=== PATIENT | female | born 1940 | race Caucasian/White ===

== ENCOUNTER 2017-02-06 22:56 | Outpatient (CLI) | payer MEDICARE, BC ==
--- NOTE | ~2017-02-06 | HEMODYNAMI ---
PATIENT:ULISES HAMLIN MEDICAL RECORD: [id number] : 38 [facility] ADMISSION DATE: 02/07/17 Generatedon:02/07/201710:20 Patient name: ULISES HAMLIN Patient #: [id number] SSN: D OB: 1940 Date of study: 02/07/2017 Page: Of Hemodynamic Procedure Report Patient Data Patient Demographics Procedure consent was obtained First Name: ULISES Gender: Female Last Name: YAKELIN : 1940 [facility] Initial: L Age: 76 year(s) Patient #: [id number] Race: Unknown Additional ID: [id number] Contact details [address]: [address] [place] [address] State: [place] City: [place] Zip code: [address] Past Medical History Allergies Allergen Reaction Date Comments Reported Other allergy 02/07/2017 Codiene Admission Admission Data Admission Date: 02/07/2017 Admission Time: 1:10 Admit Source: Other Room #: D.2117 Lab Results Lab Result Date: 02/07/2017 Lab Result Time: 5:40 Biochemistry Name Units Result Min Max BUN mg/dl 21 --(----)-* 7 18 Creatinine mg/dl 1.1 --(--*-)-- 0.6 1.3 CBC Name Units Result Min Max Hematocrit % 38.6 *-(----)-- 42 54 Hemoglobin g/dl 12.8 -*(----)-- 13.5 17.5 Procedure Procedure Types Cath Procedure Diagnostic Procedure LHC LHC w/Coronaries PCI Procedure Coronary Stent Initial Miscellaneous Procedures Moderate Sedation up to 30 minutes Procedure Description Procedure Date Procedure Date: 02/07/2017 Procedure Start Time: 9:54 Procedure End Time: 10:18 Procedure Staff Name Function Driss Nogueira MD Performing Physician Bhavani Sweeney RT Scrub Daphne Cornejo RN Nurse Fadi Dailey RT Monitor Christiano Whitman RT Band Singer Procedure Data Cath Procedure Fluoroscopy Diagnostic fluoroscopy Total fluoroscopy Time: 5.8 time: 5.8 min min Diagnostic fluoroscopy Total fluoroscopy dose: dose: 357.02 mGy 357.02 mGy Contrast Material Contrast Material Type Amount (ml) Isovue 300 113 Entry Location Entry Primary Successful Side Size Upsize Upsize Entry Closure Hurley ccessful Closure Location (Fr) 1 (Fr) 2 (Fr) Remarks Device Remarks Radial Right 6 Fr Mechanical artery Short Compression Estimated blood loss: 10 ml Diagnostic catheters Device Type Used For End Catheter Placement Diagnostic Terumo 5Fr Procedure Bruington 110cm catheter Procedure Complications No complications Procedure Medications Medication Administration Route Dosage Oxygen NC 2 l/min Lidocaine 2% added to field 20 Heparin Flush Bag added to field 2 bags (1000units/500ml NS) 0.9% NaCl I.V. 100 ml/hr Versed I.V. 0.5 mg Fentanyl I.V. 25 mcg Versed I.V. 0.5 mg Fentanyl I.V. 25 mcg Heparin Bolus I.V. 7500 units Versed I.V. 1 mg Plavix P.O. 600 mg Radial Cocktail I.A. 1 syringe (Verapomil 2mg/Nitro 400mcg/Heparin 1500units) Hemodynamics Rest HGB: 12.8 (g/dl) Heart Rate: 67 (bpm) Pressure Samples Time Site Value (mmHg) Purpose Heart Use Rate(bpm) 9:56 LV 114/-22,-6 EDP 71 9:57 AO 100/46(73) Pullback 74 9:57 LV 102/-10,0 Pullback 74 Gradients Valve Time Site 1 Site 2 Mean SEP/DFP Peak To Heart Use (mmHg) (sec/min) Peak Rate (mmHg) (bpm) Aortic 9:57 LV AO 7 6 2 74 102/-10,0 100/46(73) Calculations Valve P-P Mean Valve Index Valve Source Name Gradient Area Flow (cm2) Aortic 2 7 2 7 Snapshots Pre Cath Intra NCS Post Cath Vital Signs Time Heart Resp SPO2 etCO2 NIBP (mmHg) Rhythm Pain Sedation Rate (ipm) (%) (mmHg) Status Level (bpm) 9:42:41 66 18 90 0 130/75(91) NSR 0 (11) 10(A) , No pain 9:46:53 65 17 91 34.3 135/85(103) NSR 0 (11) 10(A) , No pain 9:51:07 66 15 95 29.1 133/68(116) NSR 0 (11) 10(A) , No pain 9:55:23 64 17 91 38 132/73(96) NSR 0 (11) 10(A) , No pain 9:59:37 71 27 94 37.3 134/76(113) NSR 0 (11) 10(A) , No pain 10:03:51 67 19 90 0 129/73(99) NSR 0 (11) 10(A) , No pain 10:08:05 68 16 93 35.8 120/71(89) NSR 0 (11) 10(A) , No pain 10:12:17 68 16 92 37.3 122/68(97) NSR 0 (11) 10(A) , No pain 10:17:08 68 16 92 36.5 132/71(92) NSR 0 (11) 10(A) , No pain Medications Time Medication Route Dose Verified Delivered Reason Note s Effectiveness by by 9:48:57 Oxygen NC 2 l/min Driss Buffie used for Dre Cornejo RN procedure 9:49:03 Lidocaine 2% added 20ml Driss Driss for local to vial Dre Nogueira MD anesthetic field 9:49:10 Heparin Flush added 2 bags Driss Driss used for Bag to Dre Nogueira MD procedure (1000units/500ml field NS) 9:49:18 0.9% NaCl I.V. 100 Driss Buffie Per physician ml/hr Dre Cornejo RN 9:49:32 Versed I.V. 0.5 mg Driss Buffie for sedation Dre Cornejo RN 9:49:38 Fentanyl I.V. 25 mcg Driss Buffie for sedation Dre Cornejo RN 9:54:24 Versed I.V. 0.5 mg Driss Buffie for sedation Dre Cornejo RN 9:54:25 Radial Cocktail I.A. 1 Driss Rdiss for (Verapomil syringe Dre Nogueira MD vasodilation 2mg/Nitro 400mcg/Heparin 1500units) 9:54:28 Fentanyl I.V. 25 mcg Driss Buffie for sedation Dre Cornejo RN 9:59:08 Versed I.V. 1 mg Driss Buffie for sedation Dre Cornejo RN 10:05:16 Heparin Bolus I.V. 7500 Driss Serna for veri fied units Dre Cornejo RN anticoagulation with dr nogueira 10:18:12 Plavix P.O. 600 mg Driss Cornejo RN antiplatelet therapy Procedure Log Time Note 8:51:54 Informed consent obtained and on chart 8:57:07 Lab Result : Hemoglobin 12.8 g/dl 8:57:07 Lab Result : Creatinine 1.1 mg/dl 8:57:07 Lab Result : BUN 21 mg/dl 8:57:07 Lab Result : Hematocrit 38.6 % 8:57:10 Admit Source: Other 8:57:24 Diagnostic Cath status Elective 8:57:26 Time tracking: Regular hours 8:57:30 Plan of Care:Hemodynamics will remain stable., Cardiac rhythm will remain stable., Comfort level will be maintained., Respiratory function will remain adequate., Patient/ family verbilizes understanding of procedure., Procedure tolerated without complication., Recovers from procedure without complications.. 9:10:08 Christiano HOOD(R) sent for patient. Start room use. 9:11:15 H&P Date Dictated: 02/07/2017 Within 30 days and on chart.. 9:29:43 Patient received from Med II to CCL 3 Alert and oriented. Tansferred to table in Supine position. 9:29:44 Warm blankets applied, and susan hugger turned on for patient comfort. 9:29:44 Correct patient and procedure confirmed by team. 9:29:45 ECG and BP/O2 sat monitors applied to patient. 9:29:46 Pre-procedure instructions explained to patient. 9:29:46 Pre-op teaching completed and patient verbalized understanding. 9:29:47 Family unavailable. 9:29:49 Patient NPO since Midnight. 9:30:20 Patient allergic to Other allergyCodiene 9:41:33 Vital chart was started 9:41:36 Baseline sample Acquired. 9:41:42 Rhythm: sinus rhythm 9:41:53 Full Disclosure recording started 9:41:57 Is the patient allergic to Iodine/contrast media? No. 9:41:58 Is patient on blood thinner?No 9:42:00 Patient diabetic? No. 9:42:03 Previous problem with sedation/anesthesia? No ? 9:42:03 Snore? Yes 9:42:04 Sleep apnea? Yes 9:42:05 Deviated septum? No 9:42:06 Opens mouth fully? Yes 9:42:06 Sticks out tongue? Yes 9:42:09 Airway obstruction? No ? 9:42:11 Dentures? No ? 9:42:28 Modified Ugo's test Ulnar < 7 seconds 9:42:31 Patient pain scale 0/10 ?. 9:42:39 IV patent on arrival in left forearm with 0.9% NaCl at [facility]. 9:42:42 Lab results completed and on chart. 9:42:49 Right Radial & Right Groin area was prepped with chlora-prep and draped in sterile fashion 9:42:50 Alarms reviewed by R. N. 9:42:50 Sharps counted by scrub and verified by R.N. 9:42:55 Use device set Radial Dx 9:42:57 MBrace Wrist Support opened to sterile field. 9:42:57 Acist Manifold opened to sterile field. 9:42:58 Acist Hand Control opened to sterile field. 9:42:58 Tegaderm 4 x 4 opened to sterile field. 9:42:59 Acist Syringe opened to sterile field. 9:43:00 Cook 21G 4cm Radial Needle opened to sterile field. 9:43:00 Medline Cath Pack opened to sterile field. 9:43:04 Bag Decanter opened to sterile field. 9:43:05 Terumo 6Fr Slender Glidesheath opened to sterile field. 9:43:05 St Vinicio 260cm J .035 wire opened to sterile field. 9:43:16 Physician arrived 9:43:16 --------ALL STOP TIME OUT------ 9:43:17 Final Timeout: patient, procedure, and site verified with staff and physician. All members of the team are in agreement. 9:43:18 Right Radial & Right Groin site verified by team. 9:43:20 Physical assessment completed. ASA score P 2 - A patient with mild systemic disease as per Driss Nogueira MD. 9:43:37 Sedation plan: IV Moderate Sedation Versed, Fentanyl 9:48:57 Oxygen 2 l/min NC was administered by Daphne Cornejo RN; used for procedure; 9:49:03 Lidocaine 2% 20ml vial added to field was administered by Driss Nogueira MD; for local anesthetic; 9:49:10 Heparin Flush Bag (1000units/500ml NS) 2 bags added to field was administered by Driss Nogueira MD; used for procedure; 9:49:18 0.9% NaCl 100 ml/hr I.V. was administered by Daphne Cornejo RN; Per physician; 9:49:32 Versed 0.5 mg I.V. was administered by Daphne Cornejo RN; for sedation; 9:49:38 Fentanyl 25 mcg I.V. was administered by Daphne Cornejo RN; for sedation; 9:54:24 Versed 0.5 mg I.V. was administered by Daphne Cornejo RN; for sedation; 9:54:25 Radial Cocktail (Verapomil 2mg/Nitro 400mcg/Heparin 1500units) 1 syringe I.A. was administered by Driss Nogueira MD; for vasodilation; 9:54:28 Fentanyl 25 mcg I.V. was administered by Daphne Cornejo RN; for sedation; 9:54:42 Procedure started. 9:54:47 Local anesthetic to right radial artery with Lidocaine 2% by Driss Nogueira MD.INITIAL ACCESS ONLY 9:54:55 A 6 Fr Short sheath was inserted into the Right Radial artery 9:55:17 A Diagnostic Networked Organisms 5Fr Bruington 110cm catheter was advanced over the wire and used for Procedure. 9:56:06 Zero performed for pressure channel P1 9:56:36 LV gram done using MCKEON 9:56:37 Injector settings: Ml/sec: 5, Volume: 15, 9:56:39 LV hemodynamics recorded. 9:56:52 EF : 45 % 9:57:34 LCA angiography performed. 9:58:45 RCA angiography performed. 9:59:08 Versed 1 mg I.V. was administered by Daphne Cornejo RN; for sedation; 10:01:02 Wave Broadband BasixCompak Inflation Kit opened to sterile field. 10:01:03 Farris BMW Colton 2 J-tip 300cm 0.014 guide wir opened to sterile field. 10:01:03 Medtronic Launcher 6Fr AR 1.0 guide catheter opened to sterile field. 10:01:09 Catheter removed. 10:01:15 6 Fr AR 1 guide catheter was inserted over the wire 10:02:27 High Pressure Extension Tubing (Dre) opened to sterile field. 10:04:15 BMW wire advanced. 10:05:16 Heparin Bolus 7500 units I.V. was administered by Daphne Cornejo RN; for anticoagulation; verified with dr nogueira 10:06:23 Wire advanced across lesion. 10:11:04 Inflation Number: 1 A Medtronic Integrity 3.0 X 12 stent was prepped and advanced across the Dist RCA. The stent was deployed at 14 [place] for 0:10 (min:sec). 10:12:23 Stent catheter was removed intact over wire. 10:12:27 Wire removed. 10:12:27 Guide catheter removed. 10:12:33 Terumo TR Band Standard opened to sterile field. 10:12:39 Sheath removed intact; hemostasis achieved with Mechanical Compression to the Right Radial artery. 10:13:34 Procedure ended.(Physican Out) 10:14:25 Fluoroscopy time 05.80 minutes. 10:14:34 Flurop Dose total: 357.02 10:14:34 Fluoroscopy dose: 357.02 mGy 10:14:46 Contrast amount:Isovue 300 113ml. 10:14:47 Sharps counted by scrub and verified by R.N. 10:14:50 TR band inflated with 12cc of air. 10:14:51 Insertion/operative site no bleeding no hematoma. 10:15:03 Post Procedure Pulses reassessed and unchanged 10:15:06 Post-procedure physical assessment completed. ASA score P 2 - A patient with mild systemic disease as per Driss Nogueira MD. 10:15:08 Post procedure rhythm: unchanged. 10:15:10 Estimated blood loss: 10 ml 10:15:12 Post procedure instruction explained to patient.Patient verbalizes understanding. 10:15:13 Patient needs reinforcement of post procedure teaching. 10:15:26 Procedure type changed to Cath procedure, Diagnostic procedure, LHC, LHC w/Coronaries, PCI procedure, Coronary Stent Initial, Miscellaneous Procedures, Moderate Sedation up to 30 minutes 10:17:53 Procedure and supply charges have been captured, reviewed, submitted and are correct. 10:17:55 Procedure Complication : No complications 10:17:57 Vital chart was stopped 10:17:57 See physician's report for complete and final results. 10:17:59 Report given to PCU. 10:18:01 Patient transfered to PCU with Stretcher. 10:18:03 Procedure ended. 10:18:03 Full Disclosure recording stopped 10:18:12 Plavix 600 mg P.O. was administered by Daphne Cornejo RN; for antiplatelet therapy; 10:18:24 End room use (Document Last) Intervention Summary Intervention Notes Time ActionType Lesion and Equipment Action# Pressure Duration Attributes Used 10:11:04 Place stent Dist RCA Medtronic 1 14 00:10 Integrity 3.0 X 12 stent Device Usage Item Name Manufacture Quantity Catalog Hospital Part Current Minimal Lot# / Number Charge Number Stock Stock Serial# Code [facility] 1 140-0250-00 583617 23515 207373 5 Wrist Vascular Support Dynamics Acist Acist 1 12885 442634 465351 178595 5 Manifold Medical Systems Inc Acist Hand Acist 1 29661 647376 580777 926459 5 Control Medical Systems Inc Tegaderm 4 3M 1 1626W 971722 309696 551836 5 x 4 Acist Acist 1 63582 356366 588561 567544 20 Syringe Medical Systems Inc Medline Cardinal 1 [id number] 869190 03817 639980 5 Cath Pack Health Bag Microtek 1 2002S 624035 54409 599919 5 [employer] Terumo 6Fr Terumo 1 [id number] 888111 901750 041740 [address] Vinicio St Vinicio 1 615198 910357 157980 287625 30 260cm J .035 wire Diagnostic Terumo 1 40-6547 279040 211984 247254 5 Terumo 5Fr Bruington 110cm catheter Merit Merit 1 [id number] 780870 755929 379809 15 BasixCompak Medical Inflation Kit Farris BMW Farris 1 [id number] 943215 344716 462478 5 Colton 2 Vascular J-tip 300cm 0.014 guide wir Medtronic Medtronic 1 [id number] 436136 51405 953583 1 Launcher 6Fr AR 1.0 guide catheter High Merit 1 [id number] 503313 51666 521228 10 Pressure Medical Extension Tubing (Nogueira) Medtronic Medtronic 1 [id number] 882121 915351 0 [id number] Integrity 3.0 X 12 stent Terumo TR Terumo 1 [id number] 476129 890856 985103 40 Band Standard Cook 21G [place] [address] [id number] 030665 446866 263520 5 4cm Radial Needle Signature Audit [place] Stage Time Signature Unsigned Intra-Procedure 02/07/2017 Fadi Dailey 10:20:43 AM RT(R) Signatures Monitor : Fadi Dailey RT Signature : Date : Time : [place] [address] [place] [address]
[2017-02-07 00:23] LABS: EOSINOPHILS 3.5 % (0-7); HEMATOCRIT 40.5 % (36.0-48.0); HEMOGLOBIN 13.4 g/dL (12-16); IMMATURE GRANULOCYTES 0.2 % (0-5); LYMPHOCYTES 32.7 % (15-50); MCH 31.4 pg (26.0-34.0); MCHC 33.1 g/dL (31.0-37.0); MCV 94.8 fL (80.0-100.0); MEAN PLATELET VOLUME 10.3 fL (7.4-10.4); MONOCYTES 12.8 % (2-11); NEUTROPHILS 48.8 % (40-80); PLATELET COUNT 415 10x3/uL (130-400); RBC 4.27 10x6/uL (4.00-5.40); WBC 8.8 10x3/uL (4.8-10.8)
[2017-02-07 00:39] LABS: ALBUMIN 3.1 g/dL (3.4-5.0); ANION GAP 12.5 mmol/L (8-16); BILIRUBIN - TOTAL 0.2 mg/dL (0.2-1.3); CALCIUM 9.1 mg/dL (8.5-10.1); CARBON DIOXIDE 29.6 mmol/L (21.0-32.0); CREATININE - SERUM 1.3 mg/dL (0.6-1.3); POTASSIUM - SERUM 4.1 mmol/L (3.5-5.1); PROTEIN - SERUM 7.2 g/dL (6.4-8.2)
--- NOTE | 2017-02-07 02:00 | NUR ---
RECIEVED TO ROOM 2116 FROM ER VIA WC. PT A&O. RESPERATIONS EVEN ON RA. IV TO LEFT FOREARM SL, PLACED ON TELEMETRY. PT DENIES PAIN OR NEEDS, BED LOW, CL IN REACH. WILL CONT TO MONITOR.
[2017-02-07] MEDS ORDERED: TEMAZEPAM30 MG PO (02:15)
[2017-02-07] MEDS ORDERED: K-TAB10 MEQ PO (02:15)
[2017-02-07] MEDS ORDERED: NEXIUM40 MG PO (02:16)
[2017-02-07] MEDS ORDERED: MOBIC7.5 MG PO (02:16)
[2017-02-07] MEDS ORDERED: TORSEMIDE20 MG PO (02:16)
[2017-02-07] MEDS ORDERED: ZOLOFT100 MG PO (02:17)
[2017-02-07] MEDS ORDERED: NEURONTIN 300300 MG PO (02:18)
[2017-02-07] MEDS ORDERED: BACLOFEN10 MG PO (02:18)
[2017-02-07] MEDS ORDERED: LOPRESSOR25 MG PO (02:18)
[2017-02-07] MEDS ORDERED: LEVOXYL100 MCG PO (02:19)
[2017-02-07] MEDS ORDERED: ZETIA10 MG PO (02:20)
--- NOTE | 2017-02-07 04:56 | NUR ---
RESTING WITH EYES CLOSED, RESPERATIONS EVEN, NO S/S DISTRESS NOTED.
[2017-02-07 05:11] VITALS: BP 125/66; BMI 28.6
--- NOTE | 2017-02-07 05:17 | NUR ---
CALL LIGHT IN REACH, WILL CONTINUE WITH PLAN OF CARE.
[2017-02-07 06:42] LABS: CKMB 1.2 U/L (0.0-3.6); CREATINE KINASE 102 UL (21-215); TROPONIN-I 0.027 ng/mL (0.000-0.060)
--- NOTE | 2017-02-07 07:30 | NUR ---
RESTING QUIETLY NAD NOTED
[2017-02-07 08:00] VITALS: BP 126/67
[2017-02-07 08:04] LABS: BASOPHILS 1.8 % (0-2); EOSINOPHILS 4.4 % (0-7); HEMATOCRIT 38.6 % (36.0-48.0); HEMOGLOBIN 12.8 g/dL (12-16); IMMATURE GRANULOCYTES 0.2 % (0-5); LYMPHOCYTES 36.4 % (15-50); MCH 31.6 pg (26.0-34.0); MCHC 33.2 g/dL (31.0-37.0); MCV 95.3 fL (80.0-100.0); MEAN PLATELET VOLUME 10.6 fL (7.4-10.4); MONOCYTES 12.8 % (2-11); NEUTROPHILS 44.4 % (40-80); PLATELET COUNT 394 10x3/uL (130-400); RBC 4.05 10x6/uL (4.00-5.40); RDW 13.9 % (11.5-14.5); WBC 8.1 10x3/uL (4.8-10.8)
[2017-02-07 08:22] LABS: ANION GAP 13.1 mmol/L (8-16); CALCIUM 9.1 mg/dL (8.5-10.1); CARBON DIOXIDE 26.3 mmol/L (21.0-32.0); CREATININE - SERUM 1.1 mg/dL (0.6-1.3); POTASSIUM - SERUM 4.4 mmol/L (3.5-5.1)
--- NOTE | 2017-02-07 08:30 | NUR ---
IN SHOWER AT THIS TIME HARSHAD NOTED
--- NOTE | 2017-02-07 09:20 | NUR ---
TO FOOD SERVICE EMPLOYEE VIA BED IN STABLE CONDITION
--- NOTE | 2017-02-07 10:35 | NUR ---
RECEIVED PT BACK FROM PULVERIZER OPERATOR VIA BED TR BAND INTACT TO RT WRIST NO S/SOF BLEEDING PPPX4 VSS NAD NOTED WILL CONTINUE TO MONITOR
[2017-02-07 11:47] VITALS: BP 114/72
[2017-02-07] MEDS ORDERED: PLAVIX75 MG PO (11:48)
[2017-02-07] MEDS ORDERED: ASPIRIN81 MG PO (11:48)
--- NOTE | 2017-02-07 15:30 | NUR ---
TR BAND REMOVED OCCLUSIVE DRSG APPLIED PT TOLERATED WELL
--- NOTE | 2017-02-07 15:45 | NUR ---
REVIEWED DISCHARGE INSTRUCTIONS WITH PT STATES UNDERSTANDING COPY GIVEN DCD SALINE LOCK TO LFS WITH 20 GA IV CATHETER INTACT SITE FREE OF REDNESS OR EDEMA PT DISCHARGED HOME IN STABLE CONDITION LEFT UNIT VIA W/C WITH ALL PERSONAL BELONGINGS
== END 2017-02-07 15:45 | disposition home or self-care (01) ==
LOC: OBSVTIME → D.ER 22:56 → D.OPS 22:56 → D.M2 02-07 01:10 → OBSVTIME 02-07 01:10 → D.ER 02-07 01:10 → EDSTATUS 02-07 11:00 → D.M2 02-07 15:45 → D.OPS 02-07 15:45
PROVIDERS: Emergency Medicine; Internal Medicine Cardiovascular Disease
DX: I25.110 Atherosclerotic heart disease of native coronary artery with unstable angina pectoris (principal); I10 Essential (primary) hypertension; E78.5 Hyperlipidemia, unspecified; K21.9 Gastro-esophageal reflux disease without esophagitis; M79.602 Pain in left arm; R68.84 Jaw pain; Z01.812 Encounter for preprocedural laboratory examination

== ENCOUNTER → 2017-11-22 10:47 | Outpatient (CLI) | payer MEDICARE, BC ==
[~2017-11-22 10:47] MED LIST: ASPIRIN81 MG PO; BACLOFEN10 MG PO; K-TAB10 MEQ PO; LEVOXYL100 MCG PO; LOPRESSOR25 MG PO; MOBIC7.5 MG PO; NEURONTIN 300300 MG PO; NEXIUM40 MG PO; PLAVIX75 MG PO; TEMAZEPAM30 MG PO; TORSEMIDE20 MG PO; ZETIA10 MG PO; ZOLOFT100 MG PO
== END | disposition home or self-care (01) ==
LOC: D.LAB 10:45 → D.CT 11:00
DX: I73.9 Peripheral vascular disease, unspecified (principal)